=== PATIENT | male | born 1960 | race Caucasian/White ===

== ENCOUNTER 2023-02-06 09:36 | Observation (INO) | payer OTHER ==
[~2023-02-06] VITALS: Ht 188 cm; Wt 108.8 kg
[2023-02-06 10:14] LABS: BASO% 0.3 % (0-3); HEMATOCRIT 35.3 % (39.0-50.0); IMMATURE GRANULOCYTES 0.2 % (0.0-5.0); LYMPH% 9.1 % (15-41); MEAN CELL VOLUME 82.7 fL CALC (80.0-100.0); MEAN CORPUSCULAR HGB 28.1 pG CALC (26.0-32.0); NEUT# 10.69 thou/uL (1.82-7.42); NEUT% 83.4 % (42-76); RED BLOOD COUNT 4.27 mill/uL (4.70-6.10); RED CELL DISTRI WIDTH 13.3 % (11.5-15.5)
[2023-02-06 10:22] LABS: ALBUMIN 4.2 g/dL (3.2-5.0); ALKALINE PHOSPHATASE 89 u/l (38-126); ANION GAP 12 (6-22 (CALC)); BILIRUBIN, TOTAL 1.3 mg/dL (0.2-1.3); BUN 25 mg/dL (8-23); BUN/CREATININE RATIO 19 (12-20 (CALC)); CARBON DIOXIDE 28 mmol/l (22-30); CHLORIDE 102 mmol/l (95-108); CREATININE 1.3 mg/dL (0.7-1.3); GFR FOR AFR.AMER. > 60 ML/MIN (>=60 (CALC)); GFR OTHER RACES 56 ML/MIN (>=60 (CALC)); LIPASE 89 u/l (23-300); POTASSIUM 4.3 mmol/l (3.5-5.1); SGOT/AST 21 u/l (19-48); SODIUM 138 mmol/l (137-146); TOTAL PROTEIN 8.1 g/dL (6.3-8.2)
[2023-02-06 13:49] LABS: URINE BILIRUBIN - DIPSTICK NEGATIVE (NEGATIVE); URINE BLOOD DIPSTICK NEGATIVE (NEGATIVE); URINE COLOR YELLOW; URINE GLUCOSE - DIPSTICK NEGATIVE (NEGATIVE); URINE KETONE NEGATIVE (NEGATIVE); URINE LEUK ESTERASE NEGATIVE (NEGATIVE); URINE PROTEIN - DIPSTICK NEGATIVE (NEG-TRACE); URINE SPECIFIC GRAVITY 1.015; URINE UROBILINOGEN - DIPSTICK 0.2 E.U./dL (0.2)
[2023-02-06 13:51] LABS: URINE NITRITE - DIPSTICK NEGATIVE (Negative)
[2023-02-06 17:52] VITALS: BP 129/78
[2023-02-06] MEDS ORDERED: LEVOTHYROXIN137 MCG PO (18:10)
[2023-02-06] MEDS ORDERED: OXYCODONE15 MG PO (18:11)
[2023-02-06] MEDS ORDERED: CLARITIN10 M2 PO (18:13)
[2023-02-06] MEDS ORDERED: TAMSULOSIN HCL0.4 MG PO (18:15)
[2023-02-06] MEDS ORDERED: POLY-IRON150 MG PO (18:17)
[2023-02-06] MEDS ORDERED: MIRALAX17 GM/SCOO (18:18)
[2023-02-06 20:06] VITALS: BP 124/73
[2023-02-06 20:07] VITALS: BP 124/73
[2023-02-07 04:59] VITALS: BP 99/61
[2023-02-07 05:04] VITALS: BP 99/61
[2023-02-07 06:45] VITALS: BP 100/61
[2023-02-07 07:17] LABS: HEMATOCRIT 34.6 % (39.0-50.0); HEMOGLOBIN 11.4 g/dl (14.0-18.0); MEAN CORPUSCULAR HGB 27.7 pG CALC (26.0-32.0); MEAN CORPUSCULAR HGB CONC 32.9 g/dL CAL (32.0-36.0); RED BLOOD COUNT 4.12 mill/uL (4.70-6.10); RED CELL DISTRI WIDTH 13.6 % (11.5-15.5)
[2023-02-07 07:33] LABS: ALBUMIN 3.8 g/dL (3.2-5.0); ALKALINE PHOSPHATASE 77 u/l (38-126); ANION GAP 9 (6-22 (CALC)); BILIRUBIN, TOTAL 1.7 mg/dL (0.2-1.3); BUN 23 mg/dL (8-23); BUN/CREATININE RATIO 20 (12-20 (CALC)); CARBON DIOXIDE 32 mmol/l (22-30); CHLORIDE 104 mmol/l (95-108); CREATININE 1.2 mg/dL (0.7-1.3); GFR FOR AFR.AMER. > 60 ML/MIN (>=60 (CALC)); GFR OTHER RACES > 60 ML/MIN (>=60 (CALC)); POTASSIUM 4.6 mmol/l (3.5-5.1); SGOT/AST 18 u/l (19-48); SODIUM 140 mmol/l (137-146); TOTAL PROTEIN 6.9 g/dL (6.3-8.2)
[2023-02-07 08:05] VITALS: BP 109/56
[2023-02-07 15:42] VITALS: BP 113/66
[2023-02-07 18:37] VITALS: BP 102/65
[2023-02-08 04:56] VITALS: BP 100/65
[2023-02-08 05:41] LABS: BASO% 0.6 % (0-3); EOS% 4.7 % (0-8); HEMATOCRIT 34.2 % (39.0-50.0); HEMOGLOBIN 11.3 g/dl (14.0-18.0); LYMPH% 16.1 % (15-41); MEAN CELL VOLUME 84.2 fL CALC (80.0-100.0); MEAN CORPUSCULAR HGB 27.8 pG CALC (26.0-32.0); MONO% 9.4 % (2-13); NEUT# 4.84 thou/uL (1.82-7.42); NEUT% 69.2 % (42-76); RED BLOOD COUNT 4.06 mill/uL (4.70-6.10); RED CELL DISTRI WIDTH 13.4 % (11.5-15.5)
[2023-02-08 06:01] LABS: ALBUMIN 3.8 g/dL (3.2-5.0); ALKALINE PHOSPHATASE 89 u/l (38-126); ANION GAP 10 (6-22 (CALC)); BILIRUBIN, TOTAL 1.2 mg/dL (0.2-1.3); BUN 25 mg/dL (8-23); BUN/CREATININE RATIO 20 (12-20 (CALC)); CARBON DIOXIDE 32 mmol/l (22-30); CHLORIDE 102 mmol/l (95-108); CREATININE 1.3 mg/dL (0.7-1.3); GFR FOR AFR.AMER. > 60 ML/MIN (>=60 (CALC)); GFR OTHER RACES 56 ML/MIN (>=60 (CALC)); SGOT/AST 21 u/l (19-48); SODIUM 140 mmol/l (137-146); TOTAL PROTEIN 7.3 g/dL (6.3-8.2)
[2023-02-08 07:08] VITALS: BP 101/58
[2023-02-08] MEDS ORDERED: AUGMENTIN400 MG/5 M PO (11:45)
== END 2023-02-08 12:34 | disposition home or self-care (01) ==
LOC: ED 09:36 → ED-I 16:00 → ED 16:48 → MS2 16:49
PROVIDERS: Family Medicine; Nurse Practitioner Family; ADMIT Internal Medicine; ATTEND Internal Medicine
DX: J18.9 Pneumonia, unspecified organism (principal); K94.22 Gastrostomy infection; L03.311 Cellulitis of abdominal wall; L92.8 Other granulomatous disorders of the skin and subcutaneous tissue; E03.9 Hypothyroidism, unspecified; G89.29 Other chronic pain; Y83.3 Surgical operation with formation of external stoma as the cause of abnormal reaction of the patient, or of later complication, without mention of misadventure at the time of the procedure; Z85.818 Personal history of malignant neoplasm of other sites of lip, oral cavity, and pharynx; Z92.21 Personal history of antineoplastic chemotherapy; Z92.3 Personal history of irradiation; Z95.828 Presence of other vascular implants and grafts
CPT/HCPCS: G0378; J1650